=== PATIENT | male | born 1985 | race Two or more races ===

== ENCOUNTER → 2019-05-25 | Emergency (ER) | payer OTHER ==
[~2019-05-25] VITALS: Ht 177.8 cm; Wt 97.5 kg
[2019-05-25 07:15] VITALS: BP 115/63
== END | disposition home or self-care (01) ==
LOC: EDBD 06:27 → ER 06:27
DX: M54.2 Cervicalgia (principal); V89.2XXA Person injured in unspecified motor-vehicle accident, traffic, initial encounter; Y93.I9 Activity, other involving external motion; Y92.410 Unspecified street and highway as the place of occurrence of the external cause; Y99.8 Other external cause status
CPT/HCPCS: 70450; 71250; 72125; 74176